=== PATIENT | female | born 1995 | race Two or more races ===

== ENCOUNTER 2023-08-11 12:55 | Emergency (ER) | payer OTHER ==
[~2023-08-11] VITALS: Ht 165.1 cm; Wt 80.2 kg
[2023-08-11] MEDS ORDERED: IBUP-1455 PO (16:19)
[2023-08-11 16:45] VITALS: BP 119/78; PULSE 81; RESP 18; TEMP 98.2; O2SAT 97
== END 2023-08-11 16:46 | disposition home or self-care (01) ==
LOC: ER 12:55
DX: S39.012A Strain of muscle, fascia and tendon of lower back, initial encounter (principal); S90.31XA Contusion of right foot, initial encounter; X50.1XXA Overexertion from prolonged static or awkward postures, initial encounter; Y93.89 Activity, other specified; Y92.090 Kitchen in other non-institutional residence as the place of occurrence of the external cause; Y99.8 Other external cause status
CPT/HCPCS: 72100; 73630